=== PATIENT | male | born 1985 | race Caucasian/White ===

== ENCOUNTER 2016-09-02 12:11 | Day surgery (SDC) | payer OTHER ==
[~2016-09-02] VITALS: Ht 188 cm; Wt 94.5 kg
[~2016-09-02 12:11] MED LIST: ACET1TAB64 PO
[2016-09-02] MEDS ORDERED: LACTATED RINGERS 1,000 ML IV SCH (12:32)
[2016-09-02 12:35] VITALS: BP 130/96
[2016-09-02] MEDS ORDERED: MIDAZOLAM 1 MG/ML, 2ML ONE (14:19)
[2016-09-02] MEDS ORDERED: FENTANYL PF 250 MCG/5ML ONE (14:19)
[2016-09-02] MEDS ORDERED: BUPIVACAINE/PF-EPI 0.5% 1:200K ONE (15:09)
[2016-09-02] MEDS ORDERED: CLINDAMYCIN 150 MG/ML, 6ML ONE (15:47)
[2016-09-02] MEDS ORDERED: ONDANSETRON 2MG/ML, 2ML IVPush PRN (16:00)
[2016-09-02] MEDS ORDERED: HYDROcodone/APAP 7.5-325MG/15ML UDC PO PRN (16:00)
[2016-09-02] MEDS ORDERED: HYDROmorphone 1 MG/ML, 1ML IV PRN (16:00)
[2016-09-02] MEDS ORDERED: FENTANYL PF 100 MCG/2ML IV PRN (16:00)
[2016-09-02] MEDS ORDERED: OXYcodone 5 MG/5 ML ORAL.SOL UDC PO PRN (16:00)
[2016-09-02] MEDS ORDERED: PROMETHAZINE 25 MG/ML, 1ML IV PRN (16:00)
[2016-09-02] MEDS ORDERED: MEPERIDINE/PF 25MG/0.5ML IVPush PRN (16:00)
[2016-09-02] MEDS ORDERED: MIDAZOLAM 1 MG/ML, 2ML IV PRN (16:00)
[2016-09-02] MEDS ORDERED: ACETAMINOPHEN 325 MG TABLET PO PRN (16:00)
[2016-09-02] MEDS ORDERED: HYDROmorphone 1 MG/ML, 1ML ONE (16:27)
[2016-09-02] MEDS ORDERED: PROMETHAZINE 25 MG/ML, 1ML ONE (16:33)
[2016-09-02] MEDS ORDERED: MEPERIDINE/PF 25MG/0.5ML ONE (16:33)
[2016-09-02] MEDS ORDERED: ROCURONIUM 10 MG/ML ONE (16:58)
[2016-09-02] MEDS ORDERED: DEXAMETHASONE 4 MG/ML, 1ML ONE (16:58)
[2016-09-02] MEDS ORDERED: GLYCOPYRROLATE 0.2MG/1ML ONE (16:58)
[2016-09-02] MEDS ORDERED: ONDANSETRON 2MG/ML, 2ML ONE (16:58)
[2016-09-02] MEDS ORDERED: NEOSTIGMINE 1 MG/ML, 10ML ONE (16:58)
[2016-09-02] MEDS ORDERED: SUCCINYLCHOLINE 20 MG/ML, 10ML ONE (16:58)
[2016-09-02] MEDS ORDERED: PROPOFOL 10 MG/ML, 20ML ONE (16:58)
[2016-09-02] MEDS ORDERED: KETOROLAC 30 MG/1 ML ONE (16:58)
[2016-09-02] MEDS ORDERED: HYDROmorphone 2MG TABLET ONE ×2 (18:14→19:01)
[2016-09-02] MEDS ORDERED: HYDROmorphone 4MG TABLET PO PRN (18:30)
== END 2016-09-02 19:55 | disposition home or self-care (01) ==
LOC: OUT 12:11
PROVIDERS: ATTEND Surgery
DX: K40.91 Unilateral inguinal hernia, without obstruction or gangrene, recurrent (principal); Z72.89 Other problems related to lifestyle; Z80.49 Family history of malignant neoplasm of other genital organs
CPT/HCPCS: 49520; C1781; J0330; J1100; J1170; J1885; J2175; J2250; J2405; J2550; J2704; J2710; J3010; J7120; J3490

== ENCOUNTER 2016-09-04 00:35 | Emergency (ER) | payer OTHER ==
[~2016-09-04] VITALS: Ht 188 cm; Wt 91.7 kg
[2016-09-04] MEDS ORDERED: SODIUM CHLORIDE 0.9% 1,000ML IVBOLUS ONE (01:30)
[2016-09-04] MEDS ORDERED: ONDANSETRON 2MG/ML, 2ML IVPush ONE (01:30)
[2016-09-04] MEDS ORDERED: MORPHINE SULFATE 4 MG/ML, 1ML IVPush PRN (01:30)
[2016-09-04 01:57] LABS: HEMOGLOBIN 15.4 g/dL (13.7-18.0)
[2016-09-04 02:03] LABS: ASPARTATE AMINO TRANSFERASE 18 U/L (15-37); BLOOD UREA NITROGEN 9 mg/dL (7-18)
[2016-09-04 04:54] VITALS: BP 119/76
== END 2016-09-04 04:57 | disposition home or self-care (01) ==
LOC: ED 01:42
DX: R10.84 Generalized abdominal pain (principal); R11.2 Nausea with vomiting, unspecified
CPT/HCPCS: 36415; 74022; 80053; 83690; 85025; 96360; 96361; 99285; J7030

== ENCOUNTER → 2017-04-20 | Outpatient (CLI) | payer OTHER | LOC: RAD 13:44 | PROVIDERS: ATTEND Urology | DX: N20.1 Calculus of ureter (principal) | CPT/HCPCS: 74176 ==

== ENCOUNTER 2018-03-18 04:29 | Emergency (ER) | payer OTHER ==
[~2018-03-18] VITALS: Ht 188 cm; Wt 93.9 kg
[2018-03-18] MEDS ORDERED: MAALOX/HYOSCYAMINE/LIDOCAINE 45 ML BTL PO ONE (06:00)
[2018-03-18] MEDS ORDERED: DEXAMETHASONE 4 MG TABLET PO ONE (06:00)
[2018-03-18] MEDS ORDERED: DEXAMETHASONE 4 MG TABLET ONE (06:14)
[2018-03-18] MEDS ORDERED: MAALOX/HYOSCYAMINE/LIDOCAINE 45 ML BTL ONE (06:14)
[2018-03-18 06:18] VITALS: BP 157/90
== END 2018-03-18 07:20 | disposition home or self-care (01) ==
LOC: ED 06:28
DX: J15.9 Unspecified bacterial pneumonia (principal); K21.0 Gastro-esophageal reflux disease with esophagitis; J02.8 Acute pharyngitis due to other specified organisms; B97.89 Other viral agents as the cause of diseases classified elsewhere
CPT/HCPCS: 36415; 71046; 86308; 87081; 87880; 99285

== ENCOUNTER 2018-08-25 07:25 | Emergency (ER) | payer OTHER ==
[~2018-08-25] VITALS: Ht 188 cm; Wt 96.0 kg
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
--- NOTE | 2018-08-25 09:00 | NUR ---
PT REC'D US, AWAITING RECHECK
[2018-08-25] MEDS ORDERED: IBUPROFEN 800 MG TABLET ONE (09:26)
[2018-08-25] MEDS ORDERED: IBUPROFEN 800 MG TABLET PO ONE (09:30)
[2018-08-25] MEDS ORDERED: methylPREDNISolone SOD SUCC 125 MG/2 ML ONE (09:44)
[2018-08-25] MEDS ORDERED: DIPHENHYDRAMINE 50 MG/ML, 1ML ONE (09:44)
[2018-08-25] MEDS ORDERED: methylPREDNISolone SOD SUCC 125 MG/2 ML IVPush ONE (10:00)
[2018-08-25] MEDS ORDERED: DIPHENHYDRAMINE 50 MG/ML, 1ML IVPush ONE (10:00)
--- NOTE | 2018-08-25 10:02 | NUR ---
TASK RN: PT RESTING ON GURNEY. NADN. ZAFAR. AWARE OF POC FOR CT.
--- NOTE | 2018-08-25 10:15 | NUR ---
CT W/CONTRAST ORDERED, PT ALLERGIC TO IODINE WITH ANAPHYLACTIC RXN PER PT BUT HAS REC'D CT W/CONTRAST WITH PRE-MEDICATION AND TOLERATED WELL. MD ORDERED BENADRYL AND SOLUMEDROL FOR 15MIN PRE-PROCEDURE. PT MEDICATED. PT TO CT
[2018-08-25 10:22] VITALS: BP 116/62
[2018-08-25] MEDS ORDERED: OMNIPAQUE 350 MG/ML, 100ML BOTTLE ONE ×2 (10:22→10:33)
--- NOTE | 2018-08-25 10:30 | NUR ---
PT TOLERATED CT CONTRAST WELL, PT ON MONITOR, PT STATES HE FEELS NO SOB, RASH OR ANY SXS BEFORE RXN TO CONTRAST.
--- NOTE | 2018-08-25 11:30 | NUR ---
SPLINT TO ARM THEN DC. PT RESTING IN GURNEY. NAD. VSS POST CONTRAST, PT STILL ON MONITOR. CALL LIGHT WITHIN REACH
--- NOTE | 2018-08-25 12:45 | NUR ---
MD AT BEDSIDE TO UPDATE PT ON POC, SPLINT PLACED
== END 2018-08-25 13:13 | disposition home or self-care (01) ==
LOC: ED 08:01
DX: M79.621 Pain in right upper arm (principal); Z88.1 Allergy status to other antibiotic agents; Z88.0 Allergy status to penicillin; Z88.8 Allergy status to other drugs, medicaments and biological substances
CPT/HCPCS: 73201; 76882; 96374; 96375; 99284; J1200; J2930; Q9967